=== PATIENT | female | born 1955 | race Two or more races ===

== ENCOUNTER 2018-05-13 13:43 | Emergency (ER) | payer MEDICAID ==
[~2018-05-13] VITALS: Ht 152.4 cm; Wt 62.6 kg
[2018-05-13 14:01] VITALS: BP 133/80
[2018-05-13] MEDS ORDERED: cefTRIAXone 1 GM in NS 55 ML IVPB ONE (15:00)
[2018-05-13] MEDS ORDERED: Albuterol ud Inhalation HHN ONE (15:00)
[2018-05-13 15:02] LABS: BASOPHILS % (AUTO) 1.4 % (0.0-2.0); EOSINOPHILS % (AUTO) 3.4 % (0.0-3.0); HEMOGLOBIN 13.8 G/DL (12.0-16.0); LYMPHOCYTES % (AUTO) 43.9 % (20.0-45.0); MEAN CORPUSCULAR VOLUME 87 FL (80-99); MONOCYTES % (AUTO) 8.5 % (1.0-10.0); NEUTROPHILS % (AUTO) 42.9 % (45.0-75.0); PLATELET COUNT 297 K/UL (150-450); RED BLOOD COUNT 4.84 M/UL (4.20-5.40); RED CELL DISTRIBUTION WIDTH 11.1 % (11.6-14.8); WHITE BLOOD COUNT 7.8 K/UL (4.8-10.8)
--- NOTE | 2018-05-13 15:12 | Emergency Room Report ---
History of Present Illness General Chief Complaint: Upper Respiratory Illness Source: Patient Present Illness HPI The patient states that about 10 days ago she came back from [place]. She states that today she returned she developed sore throat and congestion. However, this had resolved after she was seen at another emergency department. She states that over the past 5 days she has had worsening cough with green sputum production. She states that she is also fatigued. She denies chest pain or shortness of breath. She denies abdominal pain. She has no other complaints. Allergies: Coded Allergies: No Known Allergies (Unverified , 05/13/18) Patient History Past Medical History: none Past Surgical History: felicia Social History: Denies: smoking, alcohol use, drug use Last Menstrual Period: unk Reviewed Nursing Documentation: PMH: Agreed; PSxH: Agreed Nursing Documentation-PMH Past Medical History: No Stated History Review of Systems All Other Systems: negative except mentioned in HPI Physical Exam Vital Signs Date Time Temp Pulse Resp B/P (MAP) Pulse Ox O2 Delivery O2 Flow Rate FiO2 05/13/18 13:56 98.1 61 16 95 Room Air 98.1 Sp02 EP Interpretation: reviewed, normal General Appearance: no apparent distress, alert, GCS 15, non-toxic Head: normocephalic, atraumatic Eyes: bilateral eye normal inspection, bilateral eye PERRL ENT: hearing grossly normal, normal pharynx, no angioedema, normal voice Neck: full range of motion, supple/symm/no masses Respiratory: chest non-tender, no respiratory distress, no retraction, no accessory muscle use, speaking full sentences, wheezing - Right Lung jarrett, expiration Cardiovascular #1: regular rate, rhythm, no edema Gastrointestinal: normal bowel sounds, non tender, soft, non-distended, no guarding, no rebound Rectal: deferred Musculoskeletal: back normal, gait/station normal, normal range of motion, non- tender Neurologic: alert, oriented x3, responsive, motor strength/tone normal, sensory intact, speech normal Psychiatric: judgement/insight normal, memory normal, mood/affect normal, no suicidal/homicidal ideation Skin: normal color, no rash, warm/dry, well hydrated Medical Decision Making Diagnostic Impression: Primary Impression: Pneumonia Additional Impression: Wheezing ER Course This patient has pneumonia. She was given Rocephin IV. She has no respiratory distress and has oxygen saturation over 97%. She was also given a breathing treatment for some mild wheezing that was identified on physical exam. I will place the patient on a course of azithromycin to also cover atypicals. At this time, she is well-appearing and without respiratory distress with a community acquired pneumonia and I do not feel that this time she needs to be admitted to the hospital. However, she was educated that her symptoms and the pneumonia could worsen and that she should return for worsening symptoms. The patient is given close return precautions and follow-up instructions. Laboratory Tests Test 05/13/18 14:50 05/13/18 16:00 White Blood Count 7.8 K/UL (4.8-10.8) Red Blood Count 4.84 M/UL (4.20-5.40) Hemoglobin 13.8 G/DL (12.0-16.0) Hematocrit 42.0 % (37.0-47.0) Mean Corpuscular Volume 87 FL (80-99) Mean Corpuscular Hemoglobin 28.5 PG (27.0-31.0) Mean Corpuscular Hemoglobin Concent 32.8 G/DL (32.0-36.0) Red Cell Distribution Width 11.1 % (11.6-14.8) L Platelet Count 297 K/UL (150-450) Mean Platelet Volume 6.8 FL (6.5-10.1) Neutrophils (%) (Auto) 42.9 % (45.0-75.0) L Lymphocytes (%) (Auto) 43.9 % (20.0-45.0) Monocytes (%) (Auto) 8.5 % (1.0-10.0) Eosinophils (%) (Auto) 3.4 % (0.0-3.0) H Basophils (%) (Auto) 1.4 % (0.0-2.0) Sodium Level 140 MMOL/L (136-145) Potassium Level 4.4 MMOL/L (3.5-5.1) Chloride Level 102 MMOL/L (98-107) Carbon Dioxide Level 31 MMOL/L (21-32) Anion Gap 7 mmol/L (5-15) Blood Urea Nitrogen 15 mg/dL (7-18) Creatinine 0.7 MG/DL (0.55-1.30) Estimate Glomerular Filtration Rate > 60 mL/min (>60) Glucose Level 99 MG/DL (74-106) Calcium Level 10.0 MG/DL (8.5-10.1) Total Bilirubin 0.3 MG/DL (0.2-1.0) Aspartate Amino Transferase (AST) 14 U/L (15-37) L Alanine Aminotransferase (ALT) 15 U/L (12-78) Alkaline Phosphatase 91 U/L (46-116) Total Protein 7.7 G/DL (6.4-8.2) Albumin 3.6 G/DL (3.4-5.0) Globulin 4.1 g/dL Albumin/Globulin Ratio 0.9 (1.0-2.7) L Urine Color Pale yellow Urine Appearance Clear Urine pH 7 (4.5-8.0) Urine Specific [place] 1.010 (1.005-1.035) Urine Protein Negative (NEGATIVE) Urine Glucose (UA) Negative (NEGATIVE) Urine Ketones Negative (NEGATIVE) Urine Blood Negative (NEGATIVE) Urine Nitrite Negative (NEGATIVE) Urine Bilirubin Negative (NEGATIVE) Urine Urobilinogen Normal MG/DL (0.0-1.0) Urine Leukocyte Esterase 3+ (NEGATIVE) H Urine RBC 0-2 /HPF (0 - 2) Urine WBC 2-4 /HPF (0 - 2) Urine Squamous Epithelial Cells Few /LPF (NONE/OCC) Urine Bacteria Few /HPF (NONE) Microbiology Date/Time Source Procedure Growth Status 05/13/18 14:50 Nasal Nares Influenza Types A,B Antigen (JUAN DAVID) - Final Complete Laboratory Tests Test 05/13/18 14:50 White Blood Count 7.8 K/UL (4.8-10.8) Red Blood Count 4.84 M/UL (4.20-5.40) Hemoglobin 13.8 G/DL (12.0-16.0) Hematocrit 42.0 % (37.0-47.0) Mean Corpuscular Volume 87 FL (80-99) Mean Corpuscular Hemoglobin 28.5 PG (27.0-31.0) Mean Corpuscular Hemoglobin Concent 32.8 G/DL (32.0-36.0) Red Cell Distribution Width 11.1 % (11.6-14.8) L Platelet Count 297 K/UL (150-450) Mean Platelet Volume 6.8 FL (6.5-10.1) Neutrophils (%) (Auto) 42.9 % (45.0-75.0) L Lymphocytes (%) (Auto) 43.9 % (20.0-45.0) Monocytes (%) (Auto) 8.5 % (1.0-10.0) Eosinophils (%) (Auto) 3.4 % (0.0-3.0) H Basophils (%) (Auto) 1.4 % (0.0-2.0) Sodium Level Pending Potassium Level Pending Chloride Level Pending Carbon Dioxide Level Pending Blood Urea Nitrogen Pending Creatinine Pending Estimate Glomerular Filtration Rate Pending Glucose Level Pending Calcium Level Pending Total Bilirubin Pending Aspartate Amino Transferase (AST) Pending Alanine Aminotransferase (ALT) Pending Alkaline Phosphatase Pending Total Protein Pending Albumin Pending Globulin Pending EKG Diagnostic Results Rate: normal Rhythm: NSR ST Segments: no acute changes Rhythm Strip Diag. Results EP Interpretation: yes Rate: 60's Rhythm: NSR, no PVC's, no ectopy Chest X-Ray Diagnostic Results Chest X-Ray Diagnostic Results : Chest X-Ray Ordered: Yes # of Views/Limited/Complete: 1 View Indication: Other - cough EP Interpretation: No Interpretation: no effusion, no pneumothorax, other - Nodular density in the right upper lobe. See official report in EMR Electronically Signed by: Julissa Last Vital Signs Date Time Temp Pulse Resp B/P (MAP) Pulse Ox O2 Delivery O2 Flow Rate FiO2 05/13/18 13:56 98.1 61 16 95 Room Air 98.1 Disposition: HOME, SELF-CARE Condition: Stable Referrals: [facility],REFERRING (PCP) Darlene Yeboah DO May 13, 2018 15:12
[2018-05-13 15:14] LABS: ANION GAP 7 mmol/L (5-15); BLOOD UREA NITROGEN 15 mg/dL (7-18); CARBON DIOXIDE 31 MMOL/L (21-32); CHLORIDE 102 MMOL/L (98-107); CREATININE 0.7 MG/DL (0.55-1.30); POTASSIUM 4.4 MMOL/L (3.5-5.1); SODIUM 140 MMOL/L (136-145)
[2018-05-13 15:19] LABS: ALANINE AMINOTRANSFERASE 15 U/L (12-78); ALBUMIN 3.6 G/DL (3.4-5.0); ALBUMIN/GLOBULIN RATIO 0.9 (1.0-2.7); ALKALINE PHOSPHATASE 91 U/L (46-116); ASPARTATE AMINO TRANSFERASE 14 U/L (15-37); BILIRUBIN,TOTAL 0.3 MG/DL (0.2-1.0)
--- NOTE | 2018-05-13 15:27 | Diagnostic Imaging Report ---
Indication: Cough Comparison: None A single view chest radiograph was obtained. Findings: There is a nodular focus projected over the right upper lobe. The density is ill-defined. The lungs are otherwise clear. Heart size is normal. Bones are unremarkable. The aorta is mildly ectatic. IMPRESSION: Nodular density in the right upper lobe. Nodular infiltrate versus mass. Consider short-term follow-up until resolution. If there is no change, suggest CT.
[2018-05-13 17:07] LABS: APPEARANCE,URINE CLEAR; BILIRUBIN, URINE NEGATIVE (NEGATIVE); COLOR,URINE PALE YELLOW; GLUCOSE, URINE (UA) NEGATIVE (NEGATIVE); KETONES,URINE NEGATIVE (NEGATIVE); LEUKOCYTE ESTERASE ,URINE 3+ (NEGATIVE); NITRITE,URINE NEGATIVE (NEGATIVE); PH,URINE 7 (4.5-8.0); PROTEIN,URINE NEGATIVE (NEGATIVE); UROBILINOGEN,URINE NORMAL MG/DL (0.0-1.0)
[2018-05-13] MEDS ORDERED: ALBUTEROL SULF8.5 GM INH (17:33)
[2018-05-13] MEDS ORDERED: ZITHROMAX250 MG ORAL (17:33)
[2018-05-13 17:58] VITALS: BP 133/80
--- NOTE | 2018-05-14 19:19 | Cardiology Report ---
APPROVED REPORT EKG Measurement Heart [id number] [place] 154P [id number] Sinus rhythm with marked sinus arrhythmia Nonspecific T wave abnormality Abnormal ECG
== END 2018-05-13 18:02 | disposition home or self-care (01) ==
LOC: EMR 14:41
DX: J18.9 Pneumonia, unspecified organism (principal)
CPT/HCPCS: 36415; 71045; 80053; 81003; 85025; 86710; 87040; 93005; 94640; 94664; 96365; 99285; J0696

== ENCOUNTER 2018-07-10 09:03 | Emergency (ER) | payer MEDICAID ==
[~2018-07-10] VITALS: Ht 157.5 cm; Wt 59.0 kg
[~2018-07-10 09:03] MED LIST: ALBUTEROL SULF8.5 GM INH; ZITHROMAX250 MG ORAL
[2018-07-10] MEDS ORDERED: NKM (09:11)
[2018-07-10 09:25] VITALS: BP 137/69
[2018-07-10] MEDS ORDERED: ALBUTEROL SULF8.5 GM INH (09:42)
--- NOTE | 2018-07-10 09:42 | Emergency Room Report ---
History of Present Illness General Chief Complaint: Upper Respiratory Illness Source: Patient Present Illness HPI This patient is here b/c she has inspiratory chest pain, nonproductive cough. She was here two months ago for same, Rx. Albuterol Zithromax. She has NOT seen her PMD since despite being told at that time that she has an abnormal CXR that needs to be followed. She states she has an appt. August 01 with PMD. In terms of today's symptoms it has been a few days although she has continued to have an occasional intermittent cough for longer. She does not seem to be high risk for tb (not homeless, no ivda, integrated family/social, no travel). Allergies: Coded Allergies: No Known Allergies (Unverified , 05/13/18) Patient History Last Menstrual Period: menopause Nursing Documentation-PM Hx Asthma: Yes Review of Systems Constitutional: Reports: see HPI Eye: Reports: no symptoms ENT: Reports: no symptoms Respiratory: Reports: cough, HSIEH Cardiovascular: Reports: no symptoms Gastrointestinal: Reports: no symptoms Genitourinary: Reports: no symptoms Musculoskeletal: Reports: no symptoms Skin: Reports: no symptoms Psychiatric: Reports: no symptoms Neurological: Reports: no symptoms Endocrine: Reports: no symptoms Hematologic/Lymphatic: Reports: no symptoms Allergic: Reports: no symptoms All Other Systems: negative except mentioned in HPI Physical Exam Vital Signs Date Time Temp Pulse Resp B/P (MAP) Pulse Ox O2 Delivery O2 Flow Rate FiO2 07/10/18 09:08 98.1 57 18 131/79 95 Room Air Sp02 EP Interpretation: reviewed, normal General Appearance: normal inspection, well appearing, no apparent distress, alert, GCS 15, non-toxic Head: normocephalic, atraumatic Eyes: bilateral eye normal inspection, bilateral eye PERRL, bilateral eye EOMI ENT: normal ENT inspection, hearing grossly normal, normal pharynx, no angioedema, normal voice, moist mucus membranes Neck: normal inspection, full range of motion, supple, no meningismus, no bony tend Respiratory: normal inspection, no rhonchi, no respiratory distress, no retraction, no accessory muscle use, other - upper half right lung field: inspiratory and expiratory wheezing Cardiovascular #1: normal inspection, regular rate, rhythm, no edema Gastrointestinal: normal inspection, normal bowel sounds, non tender, soft, no mass, non-distended Musculoskeletal: gait/station normal, normal range of motion Neurologic: normal inspection, alert, oriented x3, responsive, motor strength/ tone normal Psychiatric: normal inspection, judgement/insight normal, memory normal Suicide Risk Assessment: Suicidal Ideation: No Had intent to initiate attempt: No Pt's plan for suicide attempt: No Has means to complete attempt: No Skin: normal inspection, normal color, no rash, warm/dry Medical Decision Making ER Course IT IS VERY IMPORTANT THAT THIS PATIENT FOLLOWS UP WITH HER PMD. THE ED CANNOT DO THIS FOR THE PATIENT. THIS IS HER RESPONSIBILITY. There is no emergency medical condition, the patient must see PMD and I have given her copies of prior CXR and labs. No antibiotics indicated but Albuterol may be helpful. It is your responsibility to discuss your radiology/lab studies with your doctor. EDs do NOT diagnose nor manage incidental, non-emergent or chronic findings. Emergency departments do not prescribe medications for chronic conditions. Emergency departments do not prescribe narcotics for chronic conditions. You need to see a primary physician. You have [facility]. Look on your Medical card for the doctor/clinic name and/or phone number to find one. Here are some other options: [facility], [facility], [facility], [facility], [facility]. Your blood pressure was elevated >120/80 but appears stable without evidence of hypertensive emergency or urgency. You have been informed that untreated high blood pressure will cause serious medical problems. You must manage this as an outpatient with your primary doctor or a doctor listed in the community resources book. Look on your Medical card for the doctor/clinic name and/or phone number to find one. Here are some other options: [facility] , [facility], [facility], [facility], [facility]. We are also giving you a Community Resources book. Chest X-Ray Diagnostic Results Chest X-Ray Diagnostic Results : Chest X-Ray Ordered: Yes # of Views/Limited/Complete: 1 View Indication: Shortness of Breath EP Interpretation: Yes Interpretation: no consolidation, no effusion, no pneumothorax, no acute cardiopulmonary disease, other - d/w radiologist who concurs Last Vital Signs Date Time Temp Pulse Resp B/P (MAP) Pulse Ox O2 Delivery O2 Flow Rate FiO2 07/10/18 09:28 57 18 Room Air 07/10/18 09:25 98.1 137/69 95 Status: improved Disposition: HOME, SELF-CARE Scripts Albuterol Sulfate* (ALBUTEROL SULFATE MDI*) 8.5 Gm Hfa.aer.ad 2 PUFF INH Q4H PRN for cough/wheezing, #1 EA 0 Refills Prov: Caleb Alexander M.D. 07/10/18 Patient Instructions: Upper Respiratory Infection, Adult Caleb Alexander M.D. Jul 10, 2018 09:42
[2018-07-10 10:16] VITALS: BP 113/75
--- NOTE | 2018-07-10 10:59 | Diagnostic Imaging Report ---
Indication: Abnormal chest x-ray. Follow-up Comparison: 05/13/2018 A single view chest radiograph was obtained. Findings: Small nodular density within the right upper lobe has shown interval resolution. The nodular density in question was therefore transient and likely represented a small focus of inflammation or pneumonia, which has resolved. The lungs are clear. Cardiac silhouette is normal. Bones are unremarkable. IMPRESSION: Interval resolution of a previously demonstrated right upper lobe density. No further evaluation is recommended or needed.
[2018-07-10 11:01] VITALS: BP 116/70
[2018-07-10 11:23] VITALS: BP 116/70
== END 2018-07-10 11:23 | disposition home or self-care (01) ==
LOC: EMR 09:38
DX: R07.9 Chest pain, unspecified (principal); R05 Cough; J45.909 Unspecified asthma, uncomplicated
CPT/HCPCS: 71045; 99283